=== PATIENT | male | born 1970 | race Caucasian/White ===

== ENCOUNTER 2017-01-15 22:02 | Emergency (ER) | payer OTHER ==
[~2017-01-15 22:02] MED LIST: ACULAR LS5 ML OP; ERYTHROMYCIN O3.5 G1 OD; FLEXERIL10 M1 PO; FLEXERIL10 MG PO; HYDROCODON-ACE1 EAC5 PO; HYDROCODON-ACE1 EAC9 PO; OXYCODONE PO; RANITIDINE PO; ROBAXIN500 MG PO; ULTRAM PO; VOLTAREN75 MG PO
== END 2017-01-15 22:15 | disposition home or self-care (01) ==
LOC: SED 22:02
DX: Z71.1 Person with feared health complaint in whom no diagnosis is made (principal)
CPT/HCPCS: 99282